=== PATIENT | male | born 1980 ===

== ENCOUNTER 2025-01-18 08:14 | Outpatient (REF) | payer OTHER, SELFPAY ==
--- OUTSIDE RECORDS SUMMARY | 2025-01-18 08:40 | XMS_ITS | Data Portability ---
Author Organization [facility], Main Office Address [address] [place] [id number] Care Team Providers Care Waste Treatment Operator Name Role Phone TOÑO SOUSA Stone Rigger EDUAR AGARWAL Table Maker AUGUSTINE RODGERS Orthopedic Surgeon [phone] ABIMAEL CROCKETT Urologist [phone] CURTIS ENCISO Primary Care Provider Assessment Encounter Date Assessment Date Assessment LastModified by Organization Details LastModified Time 10/08/2023 10/08/2023 Discussed with patient the signs/symptom s warranted for a return to office visit and/or an ER visit. Patient understood and agreed with the plan. Not available 10/08/2023 14:21:39 Plan of Treatment Reminders Order Date Submit Date Provider Last Modified By Organization Details Last Modified Time Details Appointments PE EST 2024 03:15P Dinorah spivey MD Not available Not available Not available Lab CMP, serum or plasma 2023 024 DARREL [facility] (Centralized Electronic Ordering - All Locations), Patient Can Go To The Location Of Their Choice, 06/24/2024 06:08:36 CBC w/ auto diff 2023 024 DARREL [facility] (Centralized Electronic Ordering - All Locations), Patient Can Go To The Location Of Their Choice, 06/24/2024 06:08:35 lipid panel, serum 2023 024 DARREL [facility] (Centralized Electronic Ordering - All Locations), Patient Can Go To The Location Of Their Choice, 06/24/2024 06:08:36 rapid SARS CoV 2 Ag, QL IA, respira tory specime n 2022 023 [email or web address] In-Office Order, Internal Use Only DO Not Attach Compendium DO Not Attach Compendium, Do Not Delete/merge, [id number] 10/08/2023 14:15:03 lipid panel, serum 2022 023 DARREL [facility], [address], [address], [place], [address], 03/19/2023 14:30:57 CMP, serum or plasma 2022 023 DARREL [facility], [address], [address], [place], [address], 03/19/2023 14:30:58 CBC w/ auto diff 2022 023 DARREL [facility], [address], [address], [place], [address], 03/19/2023 14:30:58 BMP, serum or plasma 2021 022 DARREL [facility], [address], [address], [place], [address], 01/02/2022 20:35:36 CBC w/ auto diff 2021 022 DARREL [facility], [address], [address], [place], [address], 01/02/2022 20:05:14 testost erone, free, serum 2021 022 DARREL [facility], [address], [address], [place], [address], 01/02/2022 20:35:38 PSA, serum or plasma 2021 022 DARREL [facility], [address], [address], [place], [address], 01/02/2022 20:35:39 ESR (erythr ocyte sedimen tation rate), blood 2021 ADRREL [facility], [address], [address], [place], [place], [address], 01/02/2022 20:56:34 C-react jasen protein , quantit ative, serum or plasma 2021 DARREL [facility], [address], [address], [place], [place], [address], 01/02/2022 20:35:37 hepatit is C virus Ab, serum 2021 DARREL [facility], [address], [address], [place], [place], [address], 01/03/2022 01:26:56 glucose , fingers tick, blood 2021 [email or web address] In-Office Order, Internal Use Only DO Not Attach Compendium DO Not Attach Compendium, Do Not Delete/merge, [id number] 11/28/2021 13:20:47 Referral audiolo gist referra l - Hearing loss on the right 2023 024 [email or web address] [facility], [address] [place] [address] [place], [address], 09/20/2024 10:53:[address] referra l - Persist ent prostat itis despite being on abx. 2021 022 mita [facility], [address] [place], [address], 12/13/2021 11:11:23 Procedures None recorde d. Surgeries None recorde d. Imaging audiogr am 2023 024 [email or web address] In-Office Order, Internal Use Only DO Not Attach Compendium DO Not Attach Compendium, Do Not Delete/merge, [id number] 03/24/2024 10:35:43 XR, chest, 2 view - x3 weeks of persist ent product jasen cough, rule in/out pneumon iafever , sore throat, and fatigue resolve d 2022 023 [facility], [address] [place], [address], 10/08/2023 15:17:08 Medication Orders Mucinex 600 mg tablet, extende d release 2022 024 [facility] #[id number], [address] [place], [address], 03/24/2024 09:43:51 Bactrim DS 800 mg-160 mg tablet [address]/Pharmacy #[id number], [address] [place], [address], 01/02/2022 13:13:07 Patient TargetsNo targets recorded. Patient Instructions Encounter Date Encounter Id Patient Instructions Last Modified By Organization Details Last Modified Time 03/19/2023 [id number] high cholesterol: care instructions [email or web address] Not available 03/19/2023 14:30:43 10/08/2023 [id number] cough: care instructions Not available 10/08/2023 14:15:02 03/24/2024 [id number] hearing loss: care instructions [email or web address] Not available 03/24/2024 10:35:39 Reason for Referral Urologist Referral for Acute prostatitis Persistent prostatitis despite being on abx. Referring Physician: [facility], Encounter Date: 11/28/2021 Drivers License Examiner Referral for Hea ring loss Hearing loss on the right Referring Physician: [facility], Encounter Date: 03/24/2024 Results Created Date Observation Date Name Description Value Unit Range Abnormal Flag Note LastModifiedBy Organization Detail LastModifiedTime 11/05/1911/06/2021 UA W/REF HOLDEN CULTU RE appear/color COLOR LESS CLEAR Not Available [facility] (Centralized Electronic Ordering - All Locations) Patient Can Go To The Location Of Their Choice, 11/06/2021 00:58:16 11/05/1911/06/2021 UA W/REF HOLDEN CULTU RE sp. gravity 1.007 (1.002 -1.030 ) Not Available [facility] (Centralized Electronic Ordering - All Locations) Patient Can Go To The Location Of Their Choice, 11/06/2021 00:58:16 11/05/1911/06/2021 UA W/REF HOLDEN CULTU RE urine pH 7.5 (5.0-8 .0) Not Available [facility] (Centralized Electronic Ordering - All Locations) Patient Can Go To The Location Of Their Choice, 11/06/2021 00:58:16 11/05/1911/06/2021 UA W/REF HOLDEN CULTU RE urine albumin NEGATI VE (neg) Not Available [facility] (Centralized Electronic Ordering - All Locations) Patient Can Go To The Location Of Their Choice, 11/06/2021 00:58:16 11/05/1911/06/2021 UA W/REF HOLDEN CULTU RE urine glucose NEGATI VE (neg) Not Available [facility] (Centralized Electronic Ordering - All Locations) Patient Can Go To The Location Of Their Choice, 11/06/2021 00:58:16 11/05/1911/06/2021 UA W/REF HOLDEN CULTU RE urine ketones NEGATI VE (neg) Not Available [facility] (Centralized Electronic Ordering - All Locations) Patient Can Go To The Location Of Their Choice, 11/06/2021 00:58:16 11/05/1911/06/2021 UA W/REF HOLDEN CULTU RE urine bilirubin NEGATI VE (neg) Not Available [facility] (Centralized Electronic Ordering - All Locations) Patient Can Go To The Location Of Their Choice, 11/06/2021 00:58:16 11/05/1911/06/2021 UA W/REF HOLDEN CULTU RE urine hemoglobin NEGATI VE (neg) Not Available [facility] (Centralized Electronic Ordering - All Locations) Patient Can Go To The Location Of Their Choice, 11/06/2021 00:58:16 11/05/1911/06/2021 UA W/REF HOLDEN CULTU RE urine nitrite NEGATI VE (neg) Not Available [facility] (Centralized Electronic Ordering - All Locations) Patient Can Go To The Location Of Their Choice, 11/06/2021 00:58:16 11/05/1911/06/2021 UA W/REF HOLDEN CULTU RE urine leukocyte NEGATI VE (neg) Not Available [facility] (Centralized Electronic Ordering - All Locations) Patient Can Go To The Location Of Their Choice, 11/06/2021 00:58:16 11/05/1911/06/2021 UA W/REF HOLDEN CULTU RE urobilinogen NORMAL mg/dL (norm) Not Available [facility] ([facility] Ordering - All Locations) Patient Can Go To The Location Of Their Choice, 11/06/2021 00:58:16 11/05/1911/06/2021 UA W/REF HOLDEN CULTU RE urine WBCs <1 /hpf (0-5) Not Available [facility] (Centralized Electronic Ordering - All Locations) Patient Can Go To The Location Of Their Choice, 11/06/2021 00:58:16 11/05/1911/06/2021 UA W/REF HOLDEN CULTU RE urine RBCs <1 /hpf (0-3) Not Available [facility] (Centralized Electronic Ordering - All Locations) Patient Can Go To The Location Of Their Choice, 11/06/2021 00:58:16 11/05/1911/06/2021 UA W/REF HOLDEN CULTU RE bacteria SLIGHT hpf (neg) abnormal Not Available [facility] (Centralized Electronic Ordering - All Locations) Patient Can Go To The Location Of Their Choice, 11/06/2021 00:58:16 11/05/1911/06/2021 UA W/REF HOLDEN CULTU RE mucus SLIGHT /lpf Not Available [facility] (Centralized Electronic Ordering - All Locations) Patient Can Go To The Location Of Their Choice, 11/06/2021 00:58:16 11/05/1911/06/2021 UA W/REF HOLDEN CULTU RE clarity CLEAR (clear ) Not Available [facility] (Centralized Electronic Ordering - All Locations) Patient Can Go To The Location Of Their Choice, [id number] 11/06/2021 00:58:16 11/05/19 22 11/06/2021 UA W/REF HOLDEN CULTU RE culture indication CULTUR E NOT INDICA RODERICK Not Available [facility] (Centralized Electronic Ordering - All Locations) Patient Can Go To The Location Of Their Choice, [id number] 11/06/2021 00:58:16 11/05/19 22 11/06/2021 URINE CHLAM YDIA GC AMP PROBE urine chlamydia amp probe (neg) NEGAT JASEN No Chlam ydia Trach omati s RNA detec roderick in this patie nt's sampl e (REFE RENCE RANGE /NORM AL VALUE : NOT DETEC RODERICK) Note: This test uses trans cript ion- media roderick ampli ficat ion metho d to detec t rRNA from C. Trach omati s Not Available [facility] (Centralized Electronic Ordering - All Locations) Patient Can Go To The Location Of Their Choice, [id number] 11/06/2021 12:46:14 11/05/1911/06/2021 URINE CHLAM YDIA GC AMP PROBE urine GC amp probe (neg) NEGAT JASEN No Neiss eria Gonor rhoea e RNA detec rodreick in this patie nt's sampl e (REFE RENCE RANGE /NORM AL VALUE : NOT DETEC RODERICK) NOTE: This test uses trans cript ion-m ediat ed ampli ficat ion metho d to detec t rRNA from N.Stoney orrho eae. A negat jasen resul t does not precl ude infec tion. In the case of a negat jasen urine resul t, testi ng of an endoc ervic al(fe male) or ureth ral (male ) speci men is recom yelena d if there is high clini clair suspi cion of infec tion. Due to very high sensi tivit y of Nucle ic Acid Ampli ficat ion Test, false posit jasen resul ts may occur . There fore, speci men handl ing is extre ron impor tant. In patie nts in whom the disea se is unlik rikki, addit ional sampl e for testi ng shoul d be consi dered after an initi al posit jasen resul t. The perfo rmanc e sindy cteri stics of this test have not been evalu ated in child amos. The Aptim a Combo 2 assay is not inten ded for the evalu ation of suspe cted sexua l abuse or for other medic o-leg al indic ation s. The order ing provi jayant shoul d asses s if the patie nt had conse nsual sex witho ut risk of sexua l abuse . [facility] if neede d. Conta ct phone numbe r . Thera peuti c failu re or succe ss canno t be deter mined with the Aptim a Combo 2 assay since nucle ic acid may persi st follo wing appro priat e antim icrob ial thera py. The Cente rs for Disea se Contr ol and Preve ntion ([facility]) recom mends confi rmato ry retes ting using cultu re or a diffe rent nucle ic acid ampli ficat ion test when posit jasen resul ts occur , if indic ated. Not Available [facility] (Centralized Electronic Ordering - All Locations) Patient Can Go To The Location Of Their Choice, [id number] 11/06/2021 12:46:14 11/28/19 22 11/28/2021 gluco se, finge rstic k, blood Blood Glucose: mg/dl 94 Not Available In-Off ice Order Internal Use Only DO Not Attach Compendium DO Not Attach Compendium, Do Not Delete/merge, [id number] 11/28/2021 13:15:05 01/03/20 22 01/02/2022 COMPL ETE BLOOD COUNT WBC 7.0 K/mm3 (4.0-1 1.0) Not Available [facility] (Centralized Electronic Ordering - All Locations) Patient Can Go To The Location Of Their Choice, [id number] 01/02/2022 20:05:14 01/03/20 22 01/02/2022 COMPL ETE BLOOD COUNT RBC 4.62 M/mm3 (4.70- 6.10) low Not Available [facility] (Centralized Electronic Ordering - All Locations) Patient Can Go To The Location Of Their Choice, [id number] 01/02/2022 20:05:14 01/03/20 22 01/02/2022 COMPL ETE BLOOD COUNT HGB 14.1 gm/dL (13.7- 17.1) Not Available [facility] (Centralized Electronic Ordering - All Locations) Patient Can Go To The Location Of Their Choice, 01/02/2022 20:05:14 01/03/2001/02/2022 COMPL ETE BLOOD COUNT HCT 43.1 % (40.5- 50.0) Not Available [facility] (Centralized Electronic Ordering - All Locations) Patient Can Go To The Location Of Their Choice, 01/02/2022 20:05:14 01/03/2001/02/2022 COMPL ETE BLOOD COUNT MCV 93.3 fL (80.0- 94.0) Not Available [facility] ([facility]ized Electronic Ordering - All Locations) Patient Can Go To The Location Of Their Choice, 01/02/2022 20:05:14 01/03/2001/02/2022 COMPL ETE BLOOD COUNT MCH 30.5 pg (27.0- 34.0) Not Available [facility] (Centralized Electronic Ordering - All Locations) Patient Can Go To The Location Of Their Choice, 01/02/2022 20:05:14 01/03/2001/02/2022 COMPL ETE BLOOD COUNT MCHC 32.7 g/dL (33.0- 37.0) low Not Available [facility] (Centralized Electronic Ordering - All Locations) Patient Can Go To The Location Of Their Choice, 01/02/2022 20:05:14 01/03/2001/02/2022 COMPL ETE BLOOD COUNT plt 224 K/mm3 (150-4 60) Not Available [facility] ([facility]ized Electronic Ordering - All Locations) Patient Can Go To The Location Of Their Choice, 01/02/2022 20:05:14 01/03/2001/02/2022 COMPL ETE BLOOD COUNT RDW-SD 45.7 fL (<47.0 ) Not Available [facility] ([facility]ized Electronic Ordering - All Locations) Patient Can Go To The Location Of Their Choice, 01/02/2022 20:05:14 01/03/2001/02/2022 COMPL ETE BLOOD COUNT MPV 10.7 fL (9.4-1 2.4) Not Available [facility] ([facility]ized Electronic Ordering - All Locations) Patient Can Go To The Location Of Their Choice, 01/02/2022 20:05:14 01/03/2001/02/2022 COMPL ETE BLOOD COUNT automated NRBC 0.0 #/100 _WBC' s Not Available [facility] ([facility]ized Electronic Ordering - All Locations) Patient Can Go To The Location Of Their Choice, 01/02/2022 20:05:14 01/03/2001/02/2022 COMPL ETE BLOOD COUNT abs. NRBC 0.0 K/mm3 Not Available [facility] (Centralized Electronic Ordering - All Locations) Patient Can Go To The Location Of Their Choice, 01/02/2022 20:05:14 01/03/2001/02/2022 BASIC METAB OLIC PANEL glucose 79 mg/dL (70-99 ) Not Available [facility] (Centralized Electronic Ordering - All Locations) Patient Can Go To The Location Of Their Choice, 01/02/2022 20:35:36 01/03/2001/02/2022 BASIC METAB OLIC PANEL BUN 13 mg/dL (6-20) Not Available [facility] (Centralized Electronic Ordering - All Locations) Patient Can Go To The Location Of Their Choice, 01/02/2022 20:35:36 01/03/2001/02/2022 BASIC METAB OLIC PANEL creatinine 0.9 mg/dL (0.7-1 .2) Not Available [facility] ([facility]ized Electronic Ordering - All Locations) Patient Can Go To The Location Of Their Choice, 01/02/2022 20:35:36 01/03/2001/02/2022 BASIC METAB OLIC PANEL sodium 143 mmol/ L (133-1 45) Not Available [facility] ([facility]ized Electronic Ordering - All Locations) Patient Can Go To The Location Of Their Choice, 01/02/2022 20:35:36 01/03/2001/02/2022 BASIC METAB OLIC PANEL potassium 4.2 mmol/ L (3.6-5 .2) Not Available [facility] ([facility]ized Electronic Ordering - All Locations) Patient Can Go To The Location Of Their Choice, 01/02/2022 20:35:36 01/03/2001/02/2022 BASIC METAB OLIC PANEL chloride 106 mmol/ L (98-10 7) Not Available [facility] ([facility] Ordering - All Locations) Patient Can Go To The Location Of Their Choice, 01/02/2022 20:35:36 01/03/2001/02/2022 BASIC METAB OLIC PANEL bicarbonate 28 mmol/ L (22-29 ) Not Available [facility] ([facility] Ordering - All Locations) Patient Can Go To The Location Of Their Choice, 01/02/2022 20:35:36 01/03/2001/02/2022 BASIC METAB OLIC PANEL anion gap 9 (4-17) Not Available [facility] ([facility] Ordering - All Locations) Patient Can Go To The Location Of Their Choice, 01/02/2022 20:35:36 01/03/2001/02/2022 BASIC METAB OLIC PANEL calcium 9.0 mg/dL (8.6-1 0.5) Not Available [facility] ([facility] Ordering - All Locations) Patient Can Go To The Location Of Their Choice, 01/02/2022 20:35:36 01/03/2001/02/2022 BASIC METAB OLIC PANEL estimated GFR creatinine 109 mL/mi n/1.7 3_M2 Not Available [facility] ([facility] Ordering - All Locations) Patient Can Go To The Location Of Their Choice, 01/02/2022 20:35:36 01/03/2001/02/2022 C-DEJA CTIVE PROTE IN C-reactive protein <0.3 mg/dL (0-0.5 ) Not Available [facility] ([facility] Ordering - All Locations) Patient Can Go To The Location Of Their Choice, 01/02/2022 20:35:37 01/03/2001/02/2022 FREE TESTO STERO NE testosterone 490 NG/dL (280-8 00) Not Available [facility] ([facility] Ordering - All Locations) Patient Can Go To The Location Of Their Choice, 01/02/2022 20:35:38 01/03/20 22 01/02/2022 FREE TESTO STERO NE shbg 61.9 nmol/ L (17-56 ) high Not Available [facility] ([facility]ized Electronic Ordering - All Locations) Patient Can Go To The Location Of Their Choice, 01/02/2022 20:35:38 01/03/20 22 01/02/2022 FREE TESTO STERO NE free testosterone , estimated 6.73 NG/dL (3.7-1 4.7) Not Available [facility] ([facility] Ordering - All Locations) Patient Can Go To The Location Of Their Choice, 01/02/2022 20:35:38 01/03/20 22 01/02/2022 PSA PSA 1.4 NG/mL (0-4) TEST PERFO RMED USING THE SANDEE ELECT [employer] MILLU MINES CENCE TOTAL PSA ASSAY . PSA VALUE S OBTAI EITAN WITH OTHER ASSAY METHO DS OR KITS CANNO T BE USED INTER SANDY EABLY . Not Available [facility] ([facility] Ordering - All Locations) Patient Can Go To The Location Of Their Choice, 01/02/2022 20:35:39 01/03/20 22 01/02/2022 SEDIM ENTAT ION RATE, AUTOM ATED sedimentatio n rate,automat ed <2 mm/HR (0-15) RESUL TS CHECK ED Not Available [facility] ([facility] Ordering - All Locations) Patient Can Go To The Location Of Their Choice, 01/02/2022 20:56:34 01/03/2001/03/2022 ANTI- HEPAT ITIS C anti-hepatit is C (neg) normal NEGAT JASEN Refer ence range : Negat jasen This test was perfo rmed on the Abbot t Archi tect immun oassa y syste m. Not Available [facility] ([facility] Ordering - All Locations) Patient Can Go To The Location Of Their Choice, 01/03/2022 01:26:56 10/08/20 23 10/08/2023 rapid SARS CoV 2 Ag, QL IA, respi rator y speci men RAPID SARS COV 2 negati ve Not Available In-Office Order Internal Use Only DO Not Attach Compendium DO Not Attach Compendium, Do Not Delete/merge, [id number] 10/08/2023 14:07:17 06/23/20 24 06/23/2024 CBC WITH DIFFE RENTI AL/PL ATELE T WBC 6.1 x10e3 /uL 3.4-10 .8 normal Not Available [facility] ([facility]) [address], [place], [address], 06/24/2024 06:08:35 06/23/20 24 06/23/2024 CBC WITH DIFFE RENTI AL/PL ATELE T RBC 5.10 x10e6 /uL 4.14-5 .80 normal Not Available [facility] ([facility]) [address], [place], [address], 06/24/2024 06:08:35 06/23/20 24 06/23/2024 CBC WITH DIFFE RENTI AL/PL ATELE T hemoglobin 15.2 g/dL 13.0-1 7.7 normal Not Available [facility] ([facility]) [address], [place], [address], 06/24/2024 06:08:35 06/23/20 24 06/23/2024 CBC WITH DIFFE RENTI AL/PL ATELE T hematocrit 45.9 % 37.5-5 1.0 normal Not Available [facility] ([facility]) [address] [place], [address], 06/24/2024 06:08:35 06/23/20 24 06/23/2024 CBC WITH DIFFE RENTI AL/PL ATELE T MCV 90 fL 79-97 normal Not Available [facility] ([facility]) [address] [place], [address], 06/24/2024 06:08:35 06/23/20 24 06/23/2024 CBC WITH DIFFE RENTI AL/PL ATELE T MCH 29.8 pg 26.6-3 3.0 normal Not Available [facility] ([facility]) [address] [place], [address], 06/24/2024 06:08:35 06/23/20 24 06/23/2024 CBC WITH DIFFE RENTI AL/PL ATELE T MCHC 33.1 g/dL 31.5-3 5.7 normal Not Available [facility] ([facility]) [address], [place], [address], 06/24/2024 06:08:35 06/23/20 24 06/23/2024 CBC WITH DIFFE RENTI AL/PL ATELE T RDW 12.3 % 11.6-1 5.4 Not Available [facility] ([facility]) [address], [place], [address], 06/24/2024 06:08:35 06/23/20 24 06/23/2024 CBC WITH DIFFE RENTI AL/PL ATELE T platelets 247 x10e3 /uL 150-45 0 normal Not Available [facility] ([facility]) [address], [place], [address], 06/24/2024 06:08:35 06/23/20 24 06/23/2024 CBC WITH DIFFE RENTI AL/PL ATELE T neutrophils 41 % not estab. normal Not Available [facility] ([facility]) [address], [place], [address], 06/24/2024 06:08:35 06/23/20 24 06/23/2024 CBC WITH DIFFE RENTI AL/PL ATELE T lymphs 47 % not estab. normal Not Available [facility] ([facility]) [address], [place], [address], 06/24/2024 06:08:35 06/23/20 24 06/23/2024 CBC WITH DIFFE RENTI AL/PL ATELE T monocytes 7 % not estab. normal Not Available [facility] ([facility]) [address], [place], [address], 06/24/2024 06:08:35 06/23/20 24 06/23/2024 CBC WITH DIFFE RENTI AL/PL ATELE T eos 4 % not estab. normal Not Available [facility] ([facility]) [address], [place], [address], 06/24/2024 06:08:35 06/23/20 24 06/23/2024 CBC WITH DIFFE RENTI AL/PL ATELE T basos 1 % not estab. normal Not Available [facility] ([facility]) [address], [place], [address], 06/24/2024 06:08:35 06/23/20 24 06/23/2024 CBC WITH DIFFE RENTI AL/PL ATELE T immature cells KEYCASE ASSEMBLER Not Available [facility] ([facility]) [address], [place], [address], 06/24/2024 06:08:35 06/23/20 24 06/23/2024 CBC WITH DIFFE RENTI AL/PL ATELE T neutrophils (absolute) 2.5 x10e3 /uL 1.4-7. 0 normal Not Available [facility] ([facility]) [address], [place], [address], 06/24/2024 06:08:35 06/23/20 24 06/23/2024 CBC WITH DIFFE RENTI AL/PL ATELE T lymphs (absolute) 2.9 x10e3 /uL 0.7-3. 1 normal Not Available [facility] ([facility]) [address] [place], [address], 06/24/2024 06:08:35 06/23/20 24 06/23/2024 CBC WITH DIFFE RENTI AL/PL ATELE T monocytes(ab solute) 0.4 x10e3 /uL 0.1-0. 9 normal Not Available [facility] ([facility]) [address] [place], [address], 06/24/2024 06:08:35 06/23/20 24 06/23/2024 CBC WITH DIFFE RENTI AL/PL ATELE T eos (absolute) 0.3 x10e3 /uL 0.0-0. 4 normal Not Available [facility] ([facility]) [address], [place], [address], 06/24/2024 06:08:35 06/23/20 24 06/23/2024 CBC WITH DIFFE RENTI AL/PL ATELE T baso (absolute) 0.1 x10e3 /uL 0.0-0. 2 normal Not Available [facility] ([facility]) [address], [place], [address], 06/24/2024 06:08:35 06/23/20 24 06/23/2024 CBC WITH DIFFE RENTI AL/PL ATELE T immature granulocytes 0 % not estab. Not Available [facility] ([facility]) [address] [address], [place], [address], 06/24/2024 06:08:35 06/23/20 24 06/23/2024 CBC WITH DIFFE RENTI AL/PL ATELE T immature grans (abs) 0.0 x10e3 /uL 0.0-0. 1 Not Available [facility] ([facility]) [address], [place], [address], 06/24/2024 06:08:35 06/23/20 24 06/23/2024 CBC WITH DIFFE RENTI AL/PL ATELE T NRBC KEYCASE ASSEMBLER Not Available [facility] ([facility]) [address], [place], [address], 06/24/2024 06:08:35 06/23/20 24 06/23/2024 CBC WITH DIFFE RENTI AL/PL ATELE T hematology comments: KEYCASE ASSEMBLER Not Available [facility] ([facility]) [address] [place], [address], 06/24/2024 06:08:35 06/23/20 24 06/24/2024 COMP. METAB OLIC PANEL (14) glucose 74 mg/dL 70-99 normal Not Available [facility] ([facility]) [address], [place], [address], 06/24/2024 06:08:36 06/23/20 24 06/24/2024 COMP. METAB OLIC PANEL (14) BUN 16 mg/dL 6-24 normal Not Available [facility] ([facility]) [address] [place], [address], 06/24/2024 06:08:36 06/23/20 24 06/24/2024 COMP. METAB OLIC PANEL (14) creatinine 1.03 mg/dL 0.76-1 .27 normal Not Available [facility] ([facility]) [address] [place] [place], [address], 06/24/2024 06:08:36 06/23/20 24 06/24/2024 COMP. METAB OLIC PANEL (14) eGFR 94 mL/mi n/1.7 3 >59 normal Not Available [facility] ([facility]) [address] [place], [address], 06/24/2024 06:08:36 06/23/20 24 06/24/2024 COMP. METAB OLIC PANEL (14) BUN/creatini ne ratio 16 9-20 normal Not Available [facility] ([facility]) [address] [place], [address], 06/24/2024 06:08:36 06/23/20 24 06/24/2024 COMP. METAB OLIC PANEL (14) sodium 142 mmol/ L 134-14 4 normal Not Available [facility] ([facility]) [address] [facility], [address], 06/24/2024 06:08:36 06/23/20 24 06/24/2024 COMP. METAB OLIC PANEL (14) potassium 4.2 mmol/ L 3.5-5. 2 normal Not Available [facility] ([facility]) [address] [place], [address], 06/24/2024 06:08:36 06/23/20 24 06/24/2024 COMP. METAB OLIC PANEL (14) chloride 101 mmol/ L 96-106 normal Not Available [facility] ([facility]) [address] [place], [address], 06/24/2024 06:08:36 06/23/20 24 06/24/2024 COMP. METAB OLIC PANEL (14) carbon dioxide, total 23 mmol/ L 20-29 normal Not Available [facility] ([facility]) [address] [place], [address], 06/24/2024 06:08:36 06/23/20 24 06/24/2024 COMP. METAB OLIC PANEL (14) calcium 9.2 mg/dL 8.7-10 .2 normal Not Available [facility] ([facility]) [address] [place], [address], 06/24/2024 06:08:36 06/23/20 24 06/24/2024 COMP. METAB OLIC PANEL (14) protein, total 7.0 g/dL 6.0-8. 5 normal Not Available [facility] ([facility]) [address] [place], [address], 06/24/2024 06:08:36 06/23/20 24 06/24/2024 COMP. METAB OLIC PANEL (14) albumin 4.6 g/dL 4.1-5. 1 normal Not Available [facility] ([facility]) [address] [place], [address], 06/24/2024 06:08:36 06/23/20 24 06/24/2024 COMP. METAB OLIC PANEL (14) globulin, total 2.4 g/dL 1.5-4. 5 Not Available [facility] ([facility]) [address] [place], [address], 06/24/2024 06:08:36 06/23/20 24 06/24/2024 COMP. METAB OLIC PANEL (14) bilirubin, total 0.8 mg/dL 0.0-1. 2 normal Not Available [facility] ([facility]) [address] [place], [address], 06/24/2024 06:08:36 06/23/20 24 06/24/2024 COMP. METAB OLIC PANEL (14) alkaline phosphatase 58 IU/L 44-121 normal Not Available [facility] ([facility]) [address] [facility], [address], 06/24/2024 06:08:36 06/23/20 24 06/24/2024 COMP. METAB OLIC PANEL (14) AST (SGOT) 20 IU/L 0-40 normal Not Available [facility] ([facility]) [address] [facility], [address], 06/24/2024 06:08:36 06/23/20 24 06/24/2024 COMP. METAB OLIC PANEL (14) ALT (SGPT) 13 IU/L 0-44 normal Not Available [facility] ([facility]) [address] [place], [address], 06/24/2024 06:08:36 06/23/20 24 06/24/2024 LIPID PANEL cholesterol, total 172 mg/dL 100-19 9 normal Not Available [facility] ([facility]) [address] [facility], [address], 06/24/2024 06:08:36 06/23/20 24 06/24/2024 LIPID PANEL triglyceride s 115 mg/dL 0-149 normal Not Available [facility] ([facility]) [address] [place], [address], 06/24/2024 06:08:36 06/23/20 24 06/24/2024 LIPID PANEL HDL cholesterol 42 mg/dL >39 normal Not Available [facility] ([facility]) [address] [place], [address], 06/24/2024 06:08:36 06/23/20 24 06/24/2024 LIPID PANEL VLDL cholesterol clair 21 mg/dL 5-40 Not Available [facility] ([facility]) [address], [place], [address], 06/24/2024 06:08:36 06/23/20 24 06/24/2024 LIPID PANEL LDL chol calc ([facility]) 109 mg/dL 0-99 above high normal Not Available [facility] ([facility]) [address], [place], [address], 06/24/2024 06:08:36 06/23/20 24 06/24/2024 LIPID PANEL LDL calc comment: [employer]CASE [employer]SEM[employer]ER Not Available [facility] ([facility]) [address] [facility], [place], [address], 06/24/2024 06:08:36 10/08/20 23 10/08/2023 XR, chest , 2 view Chest 2 Views Fronta l and Lat Reason : cough x3 weeks' of persis tent cough, r o pneumo hector fever, sore throat , and fatigu e resolv ed COMPAR ANUSHA: None. FINDIN GS: LINES AND TUBES: None. LUNGS AND PLEURA : Clear lungs. Normal pulmon raquel vascul arity. No pleura l effusi on. No pneumo thorax . HEART, MEDIAS TINUM AND JANINE: Heart is normal in size. Normal medias tinal and hilar contou r. BONES AND SOFT TISSUE S: The distal right clavic le is absent . IMPRES JOANNE: No acute abnorm ality. WSN: [id number] Orderi ng Physic dasia: Meche Horton Dictat ed By: Akbar Landaverde MD Dictat ed Date/T miri: 3:14 pm Review ed By: Akbar Landaverde MD Signed By: Akbar Landaverde MD Signed Date/T miri: 3:14 pm Transc ribed By: CSB Transc ribed Date/T miri: 12/13/ 23 3:12 pm Patien t Class: Outpat ient [email or web address] [facility] (Outpt Imaging) [address], [place], [address], 10/08/2023 15:51:26 10/08/20 23 10/08/2023 XR, chest , 2 view No observ ation record ed. [facility] [address], [place], [address], 10/09/2023 21:08:52 03/24/20 24 03/24/2024 audio gram No observ ation record ed. eliseo In-Office Order Internal Use Only DO Not Attach Compendium DO Not Attach Compendium, Do Not Delete/merge, [id number] 03/24/2024 10:45:22 Result Notes None recorded. Problems Name Problem SNOMED Code Status Onset Date Resolution Date Notes Provider Name and Address Organization Details Recorded Time Eosinoph ilic esophagi tis 067911259 Active 2016 Curtis spivey MD [address], [place], [address], [facility] [place] 7 12:56:44 Pain in left knee Active 2017 Had surgery in 2010. Followed by [facility]. Had arthrosc opic surgery again Sep 2018. Curtis spivey MD [address], [place], [address], [facility] [place] 9 09:30:11 Pain in left foot 46103723874 9107 Active 2019 Seeing podiatry ; kennedy spivey MD [address], [place], [address], [facility] [place] 0 11:58:55 Acute prostati tis 43390872 Active 2021 Yvrose thompson MA null, [facility] [place] 2 12:56:56 COVID-19 621645943 Completed 11/28/2021 Removal Reason: Problem added by user latia perez from the COVID-19 watch flag Curtis spivey MD [address] [facility] [address], [place], [address], [facility] 2 13:12:13 Strictur e of esophagu s 85029477 Active 2016 Curtis spivey MD [address] [facility] [address], [place], [address], [facility] 2 07:18:06 Chronic prostati tis 08829837 Active 2021 Followed by urology. Curtis spivey MD [address] [facility] [address], [place], [address], [facility] 2 17:59:59 Problem Notes None recorded. Procedures Surgical History Date Name Laterality Status Provider Name and Address Organization Details Recorded Time 02/07 esophagogastroduodenoscopy completed Melquiades Love [facility] 2 15:51:39 10/27 Orthopedic Surgery completed Curtis Enciso MD [address] [facility] [address], [place], [address] , [facility] 8 13:04:37 Knee arthroscopy/surgery completed Curtis Enciso MD [address] [facility] [address], [place], [address] , [facility] 8 12:44:19 Imaging Results Imaging Date Name Status LastModified by Organiz ation Details LastModified Time 10/08/2023 XR, chest, 2 view completed [email or web address] [place] [address] (Outpt Imaging) [address] [place], [address], 10/08/2023 15:51:26 10/08/2023 XR, chest, 2 view completed [facility] [address] [place], [address], 10/09/2023 21:08:52 03/24/2024 audiogram completed eliseo In-Office Ord er Internal Use Only DO Not Attach Compendium DO Not Attach Compendium, Do Not Delete/merge, [id number] 03/24/2024 10:45:22 Procedure Notes None recorded. Medical Equipment None Reported. Allergies No known drug allergies Medications Name Sig Start Date Stop Date Status Note LastModified by Organization Details LastModified Time penicillin V potassium 500 mg tablet TAKE 1 TABLET BY MOUTH EVERY 12 HOURS FOR 10 DAYS 03/19 completed Not Available Not Available Not Available sulfamethox azole 800 mg-trimetho prim 160 mg tablet TAKE 1 TABLET EVERY 12 HOURS BY ORAL ROUTE FOR 21 DAYS. 01/02 completed Not Available Not Available Not Available omeprazole 40 mg capsule,del ayed release Take 1 capsule as needed by oral route before meals. 03/19 completed Not Available Not Available Not Available polyethylen e glycol 3350 17 gram/dose oral powder Take 17 g every day by oral route as needed for 5 days. 01/02 completed Not Available Not Available Not Available levofloxaci n 750 mg tablet Take 1 tablet every day by oral route for 10 days. 11/28 completed Not Available Not Available Not Available naproxen 500 mg tablet 11/23 completed Not Available Not Available Not Available oxycodone 5 mg tablet 11/23 completed Not Available Not Available Not Available cyclobenzap rine 5 mg tablet Take 1 tablet as needed by oral route at bedtime. 12/05 completed Not Available Not Available Not Available alfuzosin ER 10 mg tablet,exte nded release 24 hr TAKE 1 TABLET BY MOUTH EVERYDAY AT BEDTIME 03/19 completed Not Available Not Available Not Available Flovent HFA 220 mcg/actuati on aerosol inhaler Inhale 1 puff as needed by inhalatio n route for 30 days. 11/28 completed Not Available Not Available Not Available chlorhexidi ne gluconate 0.12 % mouthwash 11/06 completed Not Available Not Available Not Available Vitals Date Recorded Body height Body mass index (BMI) Body weight Heart rate Oxygen saturation Oxygen saturation in Arterial blood by Pulse oximetry Body temperature Systolic blood pressure Diastolic blood pressure Provider Name and Address Organization Details Last Updated DateTime 2 175.26 cm 24.4 kg/m2 54587.7 4 g 55 /min 99 % 99 % 98.06 [degF] 119 mm[Hg] 68 mm[Hg] Yvrose thompson MA [facility] 2 12:55:08 Date Recorded Body height Body mass index (BMI) Body weight Heart rate Oxygen saturation Oxygen saturation in Arterial blood by Pulse oximetry Body temperature Systolic blood pressure Diastolic blood pressure Provider Name and Address Organization Details Last Updated DateTime 2 175.26 cm 25.1 kg/m2 72129.7 g 62 /min 98 % 98 % 97.88 [degF] 115 mm[Hg] 68 mm[Hg] Georgia Nathan MA [facility] 2 13:11:41 Date Recorded Body height Body mass index (BMI) Body weight Heart rate Oxygen saturation Oxygen saturation in Arterial blood by Pulse oximetry Body temperature Systolic blood pressure Diastolic blood pressure Provider Name and Address Organization Details Last Updated DateTime 3 175.26 cm 24.7 kg/m2 76923.9 3 g 60 /min 97 % 97 % 97.3 [degF] 117 mm[Hg] 67 mm[Hg] Georgia Nathan MA [facility] 3 13:41:49 Date Recorded Body height Body mass index (BMI) Body weight Heart rate Oxygen saturation Oxygen saturation in Arterial blood by Pulse oximetry Body temperature Systolic blood pressure Diastolic blood pressure Provider Name and Address Organization Details Last Updated DateTime 3 175.26 cm 26 kg/m2 42222.2 6 g 74 /min 98 % 98 % 98 [degF] 126 mm[Hg] 66 mm[Hg] Yvrose thompson MA [facility] 3 14:07:36 Date Recorded Body height Body mass index (BMI) Body weight Heart rate Oxygen saturation Oxygen saturation in Arterial blood by Pulse oximetry Body temperature Systolic blood pressure Diastolic blood pressure Provider Name and Address Organization Details Last Updated DateTime 4 175.26 cm 25.7 kg/m2 21020.4 7 g 66 /min 97 % 97 % 98.2 [degF] 102 mm[Hg] 64 mm[Hg] Vanda Holder [facility] 4 09:46:06 Social History Question Answer Notes LastModified by Organizat ion Details LastModified Time Tobacco Smoking Status Never Smoker Curtis Enciso MD [address] [facility] [address], [place], [address], [facility] 11/06/2017 12:42:15 Do You Have An Advance Directive? Yes Information not available 01/02/2022 What Is Your Level Of Alcohol Consumption? Occasional Information not available 11/06/2017 Is Blood Transfusion Acceptable In An Emergency? Yes [employer] Information not available 11/23/2018 What Is Your Level Of Caffeine Consumption? Moderate [email or web address] Information not available 11/29/2019 How Much Tobacco Do You Chew? None Information not available 01/02/2022 Are You Currently Employed? Yes Information not available 11/06/2017 What Type Of Diet Are You Following? GLUTENFREE Information not available 01/02/2022 Which Illicit Or Recreational Drugs Have You Used? None Information not available 11/06/2017 Do You Or Have You Ever Used E-cigarettes Or Vape? 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 With Others And 2 Children Information not available 01/02/2022 Do You Take Precautions To Prevent Distracted Driving? Yes [employer] Information not available 11/23/2018 How Often Do You Need To Have Someone Help You When You Read Instructions, Pamphlets, Or Other Written Material From Your Doctor Or Pharmacy? Never [employer] Information not available 11/23/2018 Have You Served In The ? No [employer] Information not available 11/23/2018 Have You Or Anyone In Your Household Had Any Of The Following Symptoms In The Last 14 Days: Sore Throat, Cough, Chills, Body Aches For Unknown Reasons, Shortness Of Breath For Unknown Reasons, Loss Of Smell, Loss Of Taste, Fever At Or Greater Than 100 Degrees Fahrenheit? No Information not available 12/05/2020 Are You Or Anyone In Your Household A Health Care Provider Or Emergency Responder? No [email or web address] Information not available 12/05/2020 To The Best Of Your Knowledge Have You Been In Close Proximity To Any Individual Who Tested Positive For COVID-19? No [email or web address] Information not available 12/05/2020 Have You Recently Traveled To A COVID-19 High Risk Area Or Gathering In The Last 10 Days? No [email or web address] Information not available 12/05/2020 What Was The Date Of Your Most Recent Tobacco Screening? 03/24/2024 [email or web address] Information not available 03/24/2024 How Many Children Do You Have? 2 Son Born 2013 And Daughter 2012. Information not available 11/23/2018 Do You Use Protection During Sex? No Information not available 11/06/2017 Do You Use Your Seat Belt Or Car Seat Routinely? Yes Information not available 01/02/2022 Seat Belts Used Routinely Yes Information not available 01/02/2022 Are You Sexually Active? Yes Information not available 11/06/2017 Smoke Alarm In Home Yes Information not available 01/02/2022 Do You Have Smoke And Carbon Monoxide Detectors In Your Home? Yes Information not available 01/02/2022 Are You Passively Exposed To Smoke? No Information not available 01/02/2022 Do You Or Have You Ever Used Smokeless Tobacco? Former Smokeless Tobacco User Information not available 01/02/2022 How Much Tobacco Do You Smoke? No Information not available 01/02/2022 Do You Use Any Illicit Or Recreational Drugs? No Information not available 01/02/2022 Do You Use Sunscreen Routinely? Yes kate Information not available 11/23/2018 Do You Or Have You Ever Used Any Other Forms Of Tobacco Or Nicotine? No Information not available 03/19/2023 Sex: Unknown Functional Status Question Answer Note LastModified by Organization D etails LastModified Time Are you able to walk? YESWOREST Information not available 01/02/2022 Are you able to care for yourself? Yes [email or web address] Information not available 11/23/2018 What is your exercise level? Moderate Information not available 01/02/2022 Mental Status None recorded. Family History Relationship Description Onset Age of this Age Resolved Age Notes LastModified by Organization Details LastModified Time Mother Depressive disorder [email or web address] Not available 11/23 09:10:40 Mother Anxiety disorder kate Not available 11/23 09:10:48 Paternal Grandmother Alzheimer's disease eliseo Not available 02/25 10:37:27 Father Alzheimer's disease he is in his late 60's and still able to live alone since this may be in the beginn ing stages , eliseo Not available 03/24/2024 10:38:01 Notes:1 brother (older) Medical History Condition Response Acid Reflux (GERD) Y GI Problems Y Bladder Problems Y Reflux/GERD Y Immunizations Vaccine Type Date Status Note Provider Wally stubbs and Address Organization Details Recorded Time COVID-19, mRNA, LNP-S, PF, 30 mcg/0.3 mL dose 1 completed DAVID Card [facility] 11/05/2021 13:33:39 COVID-19, mRNA, LNP-S, PF, 30 mcg/0.3 mL dose 1 completed DAVID Card [facility] 11/05/2021 13:33:40 COVID-19, mRNA, LNP-S, PF, 100 mcg/0.5mL dose or 50 mcg/0.25mL dose 1 completed DAVID Card [facility] 11/05/2021 13:33:40 Influenza, split virus, quadrivalent , PF 8 cancelled patient objection Not Available [facility] 11/13/2019 02:22:08 Tdap 9 completed Not Available [facility] 11/13/2019 02:21:49 Influenza, split virus, quadrivalent , PF 1 cancelled patient objection Curtis Enciso MD [address] [address], [place], [address], [facility] 12/05/2020 11:21:03 Influenza, split virus, quadrivalent , PF 2 cancelled patient objection Curtis Enciso MD [address] [address], [place], [address], [facility] 01/02/2022 17:05:25 Past Encounters Encounter ID Performer Location Encounter Start Date Encounter Closed Date Diagnosis/Indication Diagnosis SNOMED-CT Code Diagnosis ICD10 Code Diagnosis Note [id number] Lia Villalobos Main Office [address] [address] 08/18/2017 09:59:14 08/18/2017 10:47:41 Dysphagia 53328888 R13.10 ? if has mild peptic stricture d/t underlying gerd - will check barium swallow and get GI referral for further evaluation - ? Adames's given h/o GERD Gastroesop hageal reflux disease 350062672 K21.9 Allergic rhinitis 831650 04 J30.9 [id number] Curtis Enciso MD Main Office [address] [address] 11/06/2017 10:50:37 11/06/2017 11:44:56 Immunization refused 084841737 Z28.21 Adult [facility] th examination 898183690 Z00.00 Will get records to look at immunizati ons but it sounds like he had a Tdap after the of his first child 4 years ago. Eosinophil ic esophagitis 154508004 K20.0 Confirmed by biopsy. Followed by Dr Sousa. [id number] Curtis Enciso MD Main Office [address] [address] 11/23/2018 09:03:01 11/23/2018 09:51:45 Adult health examination 700238995 Z00.00 Will get records to look at immunizati ons but it sounds like he had a Tdap after the of his first child 4 years ago. Administra tion of viral vaccine 70333918 Z23 [id number] Lia Villalobos Main Office [address] [facility] [address] 11/29/2019 09:20:04 11/29/2019 10:17:09 Adult health examination 766929737 Z00.00 Will get records to look at immunizati ons but it sounds like he had a Tdap after the of his first child 4 years ago. Bunion 324307782 M21.61 2 Eosinophil ic esophagitis 614135394 K20.0 Confirmed by biopsy. Followed by Dr Sousa. [id number] Alcon Jay PA-C [facility] [address] [facility] [address] [facility] [place] [address] 05/25/2020 09:21:01 05/25/2020 11:34:02 Low back strain 296972393 S39.012A rec cont nsaids, change to moist heat prn, increase hep, use lumbar support pillow, avoid prolonged sitting (get up periodical ly to stretch), prn m relaxer - call if no better / worse - consider xray, PT or PSSP eval [id number] Curtis Enciso MD Main Office [address] [facility] [address] [facility] [place] [address] 12/05/2020 10:58:45 12/05/2020 13:22:13 Adult health examination 084024518 Z00.00 UTD with tetanus. Needs infl uenza immunization 763132364 Z23 Diarrhea 34521985 R19.7 Exposure t o viral disease 6888922373 34414 Z03.818 Symptomati c with diarrhea and headache. Eosinophil ic esophagitis 034997862 K20.0 Confirmed by biopsy. Followed by Dr Sousa. [id number] Bronwyn Her MD Main Office [address] [facility] [address] [facility] [place] [address] 11/05/2021 13:29:49 11/05/2021 14:07:02 Acute prostatitis 17520374 N41.0 Suspected Prostatiti s.High fiber diet discussed. Hydration enforced.W ill get Ua/Ucx, check for GC/CT although unlikely caused but GC/CT as age > 35yoStart Levaquin empiricall y for 10 days.follo w up in 10days.Adv ised if sx worsen to call, would get imaging then. [id number] Curtis Enciso MD Main Office [address] [address] [place] [address] 11/28/2021 12:47:40 11/28/2021 14:46:46 Acute prostatitis 73100673 N41.0 Possibly under-sudhakar roderick acute prostatiti s vs resistant prostatiti s. Will change abx and increase the duration to 3 weeks (from 10 days) and refer to urology for further evaluation . He can cancel that appointmen t if he improves. Polyuria 36563427 R35.81 [id number] Curtis Enciso MD Main Office [address] [address] [place] [address] 01/02/2022 13:03:59 01/02/2022 13:54:40 Adult health examination 689631800 Z00.00 UTD with tetanus. Fully vaccinated and boosted against COVID. Needs infl uenza immunization 891919723 Z23 Hepatitis C screening 41 6955697 Z11.59 Chronic prostatitis 1989 5009 N41.1 On meds which he started 1 week ago and followed by urology. He will call them next week about a f/u. Eosinophil ic esophagitis 935428250 K20.0 Confirmed by biopsy. Followed by Dr Sousa. [id number] Curtis Enciso MD Main Office [address] [address] [place] [address] 03/19/2023 13:35:48 03/19/2023 14:21:37 Adult health examination 762580344 Z00.00 UTD with tetanus. Fully vaccinated and boosted against COVID. Eosinophil ic esophagitis 691211804 K20.0 Confirmed by biopsy. Followed by Dr Sousa in the past but now controlled with dietary changes. Hyperlipidemia 29704212 E78.5 [id number] EMELIA CRYSTAL Main Office [address] [address] [place] [address] 10/08/2023 13:55:49 10/08/2023 14:25:11 Cough 98375117 R05.9 -x3 weeks of a cough; occasional ly productive -has taken nyquil/day quil that provides some relief-lik rikki a postviral cough as his other symptoms did resolve-wi ll have him continue conservati ve measuremen ts and mucinex Congestion of throat 102 332152 R09.89 -coughing up phlegm-ass ociated cough, has no other symptoms-s ore throat, fever/chil ls, and headache all resolved 1.5 weeks ago [id number] Curtis Enciso MD Main Office [address] [place] [address] 03/24/2024 09:37:24 03/24/2024 10:21:55 Adult health examination 841120410 Z00.00 UTD with tetanus. Fully vaccinated and boosted against COVID. Hearing loss 61962149 H9 1.93 hearing loss in the right ear. Chronic prostatitis 1989 5009 N41.1 Has not been a problem for more than a year. Seen by urology in the past. Eosinophil ic esophagitis 096441511 K20.0 Confirmed by biopsy. Followed by Dr Sousa in the past but now controlled with dietary changes. Health Concerns Section Related Observation LastModified by Organization Detai ls LastModified Time None Recorded Concern Status LastModified by Organization Details LastModified Time None Recorded Advance Directives Directive Y: Payers Encounter Date Sequence Insurance Name Policy Number Policy Alarcon Covered Member ID Alarcon Member ID Guarantor Name 11/28/2021 1 [facility] [id number] Giovani Kong [place] [id number] Giovani Ayanna 01/02/2022 1 [employer] [id number] Giovani Kong [place] [id number] Giovani Ayanna 03/19/2023 1 [employer] [id number] Giovani Kong [place] [id number] Giovani [place] 10/08/2023 1 [employer] [id number] Giovani E [place] [id number] Giovani [place] 03/24/2024 1 [facility] [id number] Giovani Stubbs [place] [id number] Igovani [place] Notes Date Note Type Note Provider Name and Address Organization Details Recorded Time 11/28/2021 text/html problems-MaleReported bypatient.Location:tony [place]; scrotum; abdomen Quality:dull; Pressure like pain especially when he is seated. Duration:started: (6 weeks ago or longer); symptoms lasting over 2 weeks Onset/Timing:only slightly better but has persisted. Context:no sexual dysfunction;sexually active(with only); 1 partners in last year; heterosexual Modifying Factors:nothing gives relief Associated Symptoms:no scrotal lesions/sores; no penile discharge; no blood in the urine; no pain during urination; no impotence;urgency;hesi tancy;urinary frequencyNotes:He was diagnosed with prostatitis on 11/05/21 and took 10 days of levaquin. He completed the course and felt that he was getting a little better but then symptoms because a problem again with urinary frequency, nocturia, hesitancy and incomplete emptying. He denies f/c, n/v. Curtis Enciso MD [address], [phone], [facility] [place] 11/28/2021 15:03:47 01/02/2022 text/html Generic HPI TemplateReported bypatient.Notes:He had COVID late last year despite having been fully vaccinated. His symptoms were mild.He currently has chronic prostatitis and has been seen by urology. It is improving but not totally resolved.He is eosinophilic esophagitis and is followed by GI. Curtis Enciso MD [address], [phone], [facility] [place] 01/02/2022 17:07:37 03/19/2023 text/html Generic HPI TemplateReported bypatient.Notes:He has been doing well over the past year.Eosinophilic esophagitis is under good control with dietary changes. No longer followed by a specialist.Had COVID early on in the pandemic.Chronic prostatitis no longer an issue. Curtis Enciso MD [address], [id number], [facility] [place] 03/19/2023 14:33:37 10/08/2023 text/html CoughReported bypatient.Quality:prod uctive Severity:mild Duration:constant; symptoms lasting over 2 weeks Context:non-smoker Modifying Factors:OTC medication Associated Symptoms:no fever; no chills; no chest pain; no heartburn; no nausea; no vomiting; no edema; no agitation; no wheezing; no post nasal drip Giovani presents for a persistent cough x3 weeks. Reports that he had symptoms of fever, chills, sore throat, headache, and fatigue that all resolved about 10 days ago. Now has a persistent cough that is occasionally productive. Denies of any other symptoms. Has been taking dayquil and nyquil with some relief. Has no SOB, sinus pressure, or chest pain. EMELIA CRYSTAL [address] [address], [place], [phone], [facility] [place] 10/08/2023 20:45:49 03/24/2024 text/html Generic HPI TemplateReported bypatient.Notes:He is healthy w/o complaints.Eats a gluten-free diet since he gets symptoms if he has gluten but he tested negative for celiac disease.Discussed exercise. Curtis Enciso MD [address] [address], [place], [phone], [facility] [place] [facility] 03/24/2024 10:42:18
== END 2025-01-18 08:15 | disposition home or self-care (01) ==
LOC: HO.SH 08:14
PROVIDERS: Visit Provider Internal Medicine
DX: Z01.118 Encounter for examination of ears and hearing with other abnormal findings (principal); H90.41 Sensorineural hearing loss, unilateral, right ear, with unrestricted hearing on the contralateral side
CPT/HCPCS: 92550; 92557; 92588